=== PATIENT | male | born 1970 | race Caucasian/White ===

== ENCOUNTER 2022-12-03 12:13 | Inpatient (IN) | payer OTHER ==
[~2022-12-03] VITALS: Ht 180.3 cm; Wt 64.7 kg
[~2022-12-03 12:13] MED LIST: ALBU90OI INH; AMOCLA875 PO; CEPH500 PO; CODACE30 PO; CYCL10 PO; DOXY100 PO; HYDACE5 PO; HYDGUAL120 PO; IBUP600; Lopressor 25 mg25 MG PO; MASOPHEN325 MG PO; MEDICAL MARIJUANA; NAPR500 PO; NICO21TP TOP; PANT20 PO; PENVK500 PO; PRED20 PO; PROM25 PO; ROBITUSSIN DM PO; SPACER IH; SULTRIDS PO; TRAM50 PO; VISBIOME 112.51 EACH PO
[2022-12-03 12:49] LABS: BASOPHILS ABSOLUTE AUTO 0.03 K/mm3 (0.00-0.23); BASOPHILS PERCENT AUTO 0 % (0-2); EOSINOPHILS ABSOLUTE AUTO 0.25 K/mm3 (0.00-0.68); EOSINOPHILS PERCENT AUTO 1 % (0-6); Hematocrit 43.8 % (37.0-53.0); Hemoglobin 15.4 g/dL (13.5-17.5); IMMATURE GRAN ABSOLUTE AUTO 0.12 K/mm3 (0.00-0.10); IMMATURE GRAN PERCENT AUTO 1 % (0-1); LYMPHOCYTES ABSOLUTE AUTO 2.61 K/mm3 (0.84-5.20); LYMPHOCYTES PERCENT AUTO 12 % (21-46); MONOCYTES ABSOLUTE AUTO 2.33 K/mm3 (0.16-1.47); MONOCYTES PERCENT AUTO 11 % (4-13); Mean Corpuscular HGB 34.7 pg (26.0-34.0); Mean Corpuscular HGB Conc 35.2 g/dL (31.5-36.5); Mean Corpuscular Volume 99 fL (80-100); Mean Platelet Volume 11.5 fL (9.1-12.4); NEUTROPHILS ABSOLUTE AUTO 16.18 K/mm3 (1.96-9.15); NEUTROPHILS PERCENT AUTO 75 % (41-73); Platelet Count 280 K/mm3 (150-400); RDW Coefficient Variation 16.8 % (11.7-14.2); RDW Standard Deviation 60.9 fL (35.1-46.3); Red Blood Cell Count 4.44 M/mm3 (4.30-5.90); White Blood Cell Count 21.52 K/mm3 (4.00-11.30)
[2022-12-03 13:09] LABS: Albumin, Blood 3.8 g/dL (3.4-5.0); Albumin/Globulin Ratio 1.1 (0.8-1.8); Bilirubin, Total 0.8 mg/dL (0.1-1.0); Bun/Creatinine Ratio 12.2 (12.0-20.0); Calcium, Blood 9.2 mg/dL (8.5-10.1); Creatinine, Blood 0.66 mg/dL (0.60-1.20); Globulin, Blood 3.4 g/dL (2.2-4.0); Potassium, Blood 3.9 mmol/L (3.5-5.5); Total Protein, Blood 7.2 g/dL (6.4-8.2)
[2022-12-03 13:44] LABS: Influenza A, PCR NEGATIVE (NEGATIVE); Influenza B, PCR NEGATIVE (NEGATIVE); Resp Syncytial Virus, PCR NEGATIVE (NEGATIVE); SARS-Cov-2 (COVID-19) PCR, MMC NEGATIVE (NEGATIVE)
[2022-12-03] MEDS ORDERED: ALBU90OI INH (16:28)
--- NOTE | 2022-12-03 18:42 | NUR ---
PT ADMITTED FOR PNEUMONIA Pt is AOx4, independent in room. 2lpm oxygen, wheezing noted t/o lungs, nonproductive moist cough. Temporal temp is 101, Tylenol given and reassessed. Oral temp is 101, per MD extra dose of Tylenol 650mg given. IV Rochepin & Azithromycin administred. Med rec completed, pt states only home med is Albuteral I, he takes PRN. Tele monitor on, sinus tachy @115. Will continue plan of care.
--- NOTE | 2022-12-03 19:43 | NUR ---
Reassessed patient after giving extra tylenol for fever, oral temp is now 102. BP 112/62 (MAP 82), HR Sinus Tach @ 117, O2 90% on 3lpm, RR 22. Patient skin hot to the touch. instructed RN to give Advil 600mg x1 & apply cool packs. Handoff report given to PANCHO PALMER.
[2022-12-04 05:28] LABS: BASOPHILS ABSOLUTE AUTO 0.09 K/mm3 (0.00-0.23); BASOPHILS PERCENT AUTO 0 % (0-2); EOSINOPHILS ABSOLUTE AUTO 0.04 K/mm3 (0.00-0.68); EOSINOPHILS PERCENT AUTO 0 % (0-6); Hematocrit 40.5 % (37.0-53.0); Hemoglobin 14.1 g/dL (13.5-17.5); IMMATURE GRAN ABSOLUTE AUTO 0.45 K/mm3 (0.00-0.10); IMMATURE GRAN PERCENT AUTO 1 % (0-1); LYMPHOCYTES ABSOLUTE AUTO 2.64 K/mm3 (0.84-5.20); LYMPHOCYTES PERCENT AUTO 8 % (21-46); MONOCYTES ABSOLUTE AUTO 4.09 K/mm3 (0.16-1.47); MONOCYTES PERCENT AUTO 12 % (4-13); Mean Corpuscular HGB 34.4 pg (26.0-34.0); Mean Corpuscular HGB Conc 34.8 g/dL (31.5-36.5); Mean Corpuscular Volume 99 fL (80-100); NEUTROPHILS ABSOLUTE AUTO 26.82 K/mm3 (1.96-9.15); NEUTROPHILS PERCENT AUTO 79 % (41-73); Platelet Count 214 K/mm3 (150-400); RDW Coefficient Variation 16.6 % (11.7-14.2); RDW Standard Deviation 60.6 fL (35.1-46.3); White Blood Cell Count 34.13 K/mm3 (4.00-11.30)
[2022-12-04 05:48] LABS: Bun/Creatinine Ratio 18.9 (12.0-20.0); Creatinine, Blood 0.69 mg/dL (0.60-1.20); Potassium, Blood 3.9 mmol/L (3.5-5.5)
--- NOTE | 2022-12-04 08:07 | NUR ---
DONNY STARTED HIS NIGHT WITH A 102 FEVER. AFTER 2 DOSES OF TYLENOL, 600MG OF IBUPROPHEN AND ICE PACKS UNDER HIS ARMS, THE PATIENT'S TEMP DROPPED DOWN TO 98.2 F. NO FURTHER TEMP OVERNIGHT. WBC THIS AM WERE 34.13. PATIENT COMPLAINED THIS MORNING OF RIGHT SIDED PLEURITIC PAIN. TYLENOL WAS GIVEN FOR RELIEF, AND ONCOMING RN INFORMED
--- NOTE | 2022-12-04 15:49 | NUR ---
SHIFT SUMMARY NO ACUTE CHANGES THIS SHIFT. PT AOX4 AND INDEPENDENT TO THE BATHROOM. DAUGHTER AND SON HAVE BEEN AT THE BS THIS SHIFT. PT HAS C/O MONZON AND GENERALIZED PAIN, MEDICATED PER THE EMAR. PT REMAINS ON 3L NC. HIS APPETITE HAS BEEN REAGAN TODAY, EATING WELL. BREATHING TX'S WERE INITIATED AND HE IS TOLERATING THEM WELL. HE SAYS HE IS COUGHING LESS. WILL REPORT TO ONCOMING NURSE.
[2022-12-04 17:24] LABS: Adenovirus Not Detected (NOT DETECT); Bordetella pertussis Not Detected (NOT DETECT); Chlamydophila pneumoniae Not Detected (NOT DETECT); Coronavirus 229E Not Detected (NOT DETECT); Coronavirus HKU1 Not Detected (NOT DETECT); Coronavirus NL63 Not Detected (NOT DETECT); Coronavirus OC43 Not Detected (NOT DETECT); Human Metapneumovirus Not Detected (NOT DETECT); Human Rhinovirus/Enterovirus Detected (NOT DETECT); Influenza A/2009-H1 Not Detected (NOT DETECT); Influenza A/H1 Not Detected (NOT DETECT); Influenza A/H3 Not Detected (NOT DETECT); Influenza B Not Detected (NOT DETECT); Parainfluenza Virus 1 Not Detected (NOT DETECT); Parainfluenza Virus 2 Not Detected (NOT DETECT); Parainfluenza Virus 3 Not Detected (NOT DETECT); Parainfluenza Virus 4 Not Detected (NOT DETECT); Respiratory Syncytial Virus Not Detected (NOT DETECT); SARS-Cov-2 (COVID-19), BioFire Not Detected (NOT DETECT)
[2022-12-04 17:25] LABS: Mycoplasma pneumoniae Not Detected (NOT DETECT)
--- NOTE | 2022-12-05 04:33 | NUR ---
SHIFT SUMMARY PATIENT HAD NO ACUTE CHANGES. AXOX 4 AND INDEPENDENT IN ROOM. PIV REMAINS INTACT. IV ABX INFUSED. TELE MONITOR NSR 98. REPORTED GENERAL PAIN X ONE AND TYLENOL 650 MG GIVEN PER EMAR. ON 3L O2 NC. RT IN FOR BREATHING TX. DENIES CHEST PAIN, SOB, AND N/V. REQUESTED FOOD T/O SHIFT. SLEPT ON/OFF. CALL LIGHT IN REACH. BED IN LOWEST POSITION. WILL CONTINUE TO MONITOR UNTIL DAY SHIFT NURSE ASSUMES CARE.
[2022-12-05 04:50] LABS: BASOPHILS ABSOLUTE AUTO 0.02 K/mm3 (0.00-0.23); BASOPHILS PERCENT AUTO 0 % (0-2); EOSINOPHILS PERCENT AUTO 1 % (0-6); Hematocrit 38.5 % (37.0-53.0); Hemoglobin 13.4 g/dL (13.5-17.5); IMMATURE GRAN ABSOLUTE AUTO 0.07 K/mm3 (0.00-0.10); IMMATURE GRAN PERCENT AUTO 1 % (0-1); LYMPHOCYTES ABSOLUTE AUTO 2.64 K/mm3 (0.84-5.20); LYMPHOCYTES PERCENT AUTO 17 % (21-46); MONOCYTES ABSOLUTE AUTO 1.76 K/mm3 (0.16-1.47); MONOCYTES PERCENT AUTO 12 % (4-13); Mean Corpuscular HGB 34.4 pg (26.0-34.0); Mean Corpuscular HGB Conc 34.8 g/dL (31.5-36.5); Mean Corpuscular Volume 99 fL (80-100); Mean Platelet Volume 12.1 fL (9.1-12.4); NEUTROPHILS PERCENT AUTO 69 % (41-73); Platelet Count 188 K/mm3 (150-400); RDW Coefficient Variation 16.9 % (11.7-14.2); RDW Standard Deviation 60.6 fL (35.1-46.3); White Blood Cell Count 15.19 K/mm3 (4.00-11.30)
[2022-12-05 05:13] LABS: Albumin, Blood 2.8 g/dL (3.4-5.0); Anion Gap 2 mmol/L (6-16); Blood Urea Nitrogen 17 mg/dL (8-24); Bun/Creatinine Ratio 23.8 (12.0-20.0); CO2, Blood 31 mmol/L (21-32); Calcium, Blood 8.9 mg/dL (8.5-10.1); Chloride, Blood 108 mmol/L (98-108); Creatinine, Blood 0.72 mg/dL (0.60-1.20); Glomerular Filtration Rate 110 (60-); Glucose, Blood 119 mg/dL (70-99); Phosphorus, Blood 2.4 mg/dL (2.5-4.9); Potassium, Blood 3.3 mmol/L (3.5-5.5); Sodium, Blood 141 mmol/L (136-145)
--- NOTE | 2022-12-05 17:55 | NUR ---
DAYSHIFT SUMMARY No acute changes to patietn status, vitals stable afebrile. Requiring 2lpm oxygen to maintain sats. IV ABX given, pt reported pruritis when Azithromycin transfusing, Pharmacy changed to PO. Start PO Prednisone today. Lungs dim/wheezing, nonproductive cough. Patient reports overall feeling a lot better today. Will continue plan of care, no discharge plans at this time.
[2022-12-06 00:41] LABS: Vancomycin, Trough 11.6 ug/mL (5.0-10.0)
--- NOTE | 2022-12-06 05:01 | NUR ---
SHIFT SUMMARY 52 YR M ADMITTED ON 12/03/22 FOR PNEUMONIA. FULL CODE. NO ACUTE CHANGES THIS SHIFT. PT'S SON HAS BEEN AT BEDSIDE FOR ENTIRE SHIFT. PT HAS HAD NO C/O PAIN OR DISCOMFORT. HE TOOK HIS O2 OFF STATING THAT HE DIDN'T FEEL HE NEEDED IT AT THIS TIME. PT STATED THAT HE WAS TOLD BY PHYSICIAN THAT HE WOULD BE GOING HOME THIS A.M. AND HE IS ANXIOUS TO LEAVE HE HAS A HOUSING ISSUE TO DEAL WITH.
--- NOTE | 2022-12-06 17:07 | NUR ---
PT IS A/OX4, PLEASANT AND COOPERATIVE. THE PT IS UP IND IN HIS ROOM. THE PTS SON IS AT THE BEDSIDE. THE PT DENIED PAIN, N/V,SOB T/O THE DAY. PT WAS UP AND SHOWERED THIS AFTERNOON. PT APPEARS TO BE BREATHING EASILY ON RA AT THIS TIME, CALL LIGHT IN REACH. WILL CONTINUE TO MONITOR AND ASSESS FOR CHANGES
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
[2022-12-07 08:21] LABS: Hematocrit 40.7 % (37.0-53.0); Hemoglobin 14.2 g/dL (13.5-17.5); Mean Corpuscular HGB 34.4 pg (26.0-34.0); Mean Corpuscular HGB Conc 34.9 g/dL (31.5-36.5); Mean Corpuscular Volume 99 fL (80-100); Mean Platelet Volume 11.2 fL (9.1-12.4); Platelet Count 265 K/mm3 (150-400); RDW Coefficient Variation 16.3 % (11.7-14.2); RDW Standard Deviation 59.7 fL (35.1-46.3); Red Blood Cell Count 4.13 M/mm3 (4.30-5.90); White Blood Cell Count 9.96 K/mm3 (4.00-11.30)
[2022-12-07 08:43] LABS: Bun/Creatinine Ratio 23.6 (12.0-20.0); Calcium, Blood 9.2 mg/dL (8.5-10.1); Creatinine, Blood 0.55 mg/dL (0.60-1.20); Potassium, Blood 3.4 mmol/L (3.5-5.5)
[2022-12-07 08:47] LABS: Vancomycin, Trough 14.9 ug/mL (5.0-10.0)
--- NOTE | 2022-12-07 12:20 | NUR ---
AMA 1215 AMA PT LEFT AMA. STATED HE HAD TO LEAVE BUT PLANS ON COMING BACK TODAY TO CONTINUE TREATMENT. NOTIFIED
[2022-12-08] MEDS ORDERED: NICO21TP TOP (11:46)
[2022-12-08] MEDS ORDERED: LACT PO (11:47)
[2022-12-08] MEDS ORDERED: AMOCLA875 PO (11:48)
[2022-12-08] MEDS ORDERED: FLUTICASONE-SA1 EA11 INH (11:49)
== END 2022-12-07 12:15 | disposition left against medical advice (07) | DRG 871 ==
LOC: ER 12:13 → MEDS 14:44
PROVIDERS: Internal Medicine; Student in an Organized Health Care Education/Training Program; ADMIT Family Medicine
DX: A40.3 Sepsis due to Streptococcus pneumoniae (principal); J15.4 Pneumonia due to other streptococci; J96.01 Acute respiratory failure with hypoxia; R65.20 Severe sepsis without septic shock; J44.1 Chronic obstructive pulmonary disease with (acute) exacerbation; J44.0 Chronic obstructive pulmonary disease with (acute) lower respiratory infection; M54.9 Dorsalgia, unspecified; M54.2 Cervicalgia; G89.29 Other chronic pain; E87.6 Hypokalemia; F17.210 Nicotine dependence, cigarettes, uncomplicated; B34.8 Other viral infections of unspecified site; Z20.822 Contact with and (suspected) exposure to COVID-19; Z79.899 Other long term (current) drug therapy; Z79.2 Long term (current) use of antibiotics; Z79.52 Long term (current) use of systemic steroids; Z71.6 Tobacco abuse counseling
CPT/HCPCS: 0202U; 0241U; 36415; 71046; 80048; 80053; 80069; 80202; 83605; 85025; 85027; 87040; 87070; 87186; 87205; 93306; 94640; 94664; 94760; 96374; 99285-25; A9270; J0456; J0696; J1650; J3370; J7050; J7120; J7512

== ENCOUNTER 2022-12-07 15:21 | Inpatient (IN) | payer OTHER ==
[~2022-12-07] VITALS: Ht 180.3 cm; Wt 62.7 kg
--- NOTE | 2022-12-07 17:41 | NUR ---
NOTES: PATIENT ARRIVED TO ROOM AT AROUND 1715. FROM ER ADMITTED TO MEDICAL FLOOR c DIAGNOSIS OF BACTREMIA. ADMISSION, MEDRIC, SKIN ASSESSMENT c 2 RN BAR TURNER COMPLETED. NOTED BUE PUNCTURED DRY HECTOR SCATTERED T/O, BRUISING TO L LEG, AND AND SCAR TO LLE. PATIENT A&OX4. VERY TALKATIVE. PLEASANT AND COOPERATIVE c CARE. DENIES CP/PRESSURE, N/V AND SOB. VITAL SIGNS REVIEWED. IV TO MIGUEL SALINE LOCKED AT THIS TIME. CALL LIGHT IN REACH.
--- NOTE | 2022-12-08 05:49 | NUR ---
PT IS A&O4, INDEPENDENT WITH ADL'S, VSS, RA, NPO OVERNIGHT, NO COMPLAINTS OF PAIN OR DISCOMFORT THIS SHIFT, CONTINUE POC
[2022-12-08 06:08] LABS: Bun/Creatinine Ratio 29.8 (12.0-20.0); Calcium, Blood 9.9 mg/dL (8.5-10.1); Creatinine, Blood 0.57 mg/dL (0.60-1.20); Potassium, Blood 4.1 mmol/L (3.5-5.5)
--- NOTE | 2022-12-08 08:00 | NUR ---
pt laying in bed with eyes closed, wakes easily, a/ox3, cooperative with care, follows commands well, denies pain, lungs are clear t/o, on r/a, no cough noted, hrr, no edema noted, ppp+2, cap refill <3sec vs stable, afebrile, piv site to lac, site is clear and patent, btx4, abd flat soft nontender, voids without diff, skin c/w/d, massimo camejo, states he's feeling pretty good this am, slept well last night, call light in reach, is npo pending GRICEL.
[2022-12-08] MEDS ORDERED: NICO21TP TOP (11:46)
[2022-12-08] MEDS ORDERED: LACT PO (11:47)
[2022-12-08] MEDS ORDERED: AMOCLA875 PO (11:48)
[2022-12-08] MEDS ORDERED: FLUTICASONE-SA1 EA11 INH (11:49)
--- NOTE | 2022-12-08 12:45 | NUR ---
Pt has been discharged to home, iv removed intact, went over discharge instructions with him, he verbalized understanding, had lunch, left via wheelchair with core shaper in attendence.
== END 2022-12-08 14:52 | disposition home or self-care (01) | DRG 871 ==
LOC: ER 15:21 → MEDS 16:42
PROVIDERS: ADMIT Internal Medicine
PROC: 3E03329 Introduction of Other Anti-infective into Peripheral Vein, Percutaneous Approach (ICD-10-PCS; 2022-12-07)
PROC: B24BZZ4 Ultrasonography of Heart with Aorta, Transesophageal (ICD-10-PCS; principal; 2022-12-08)
DX: A40.3 Sepsis due to Streptococcus pneumoniae (principal); J18.9 Pneumonia, unspecified organism; J96.01 Acute respiratory failure with hypoxia; R65.20 Severe sepsis without septic shock; J44.1 Chronic obstructive pulmonary disease with (acute) exacerbation; J44.0 Chronic obstructive pulmonary disease with (acute) lower respiratory infection; E87.6 Hypokalemia; F17.210 Nicotine dependence, cigarettes, uncomplicated; B34.8 Other viral infections of unspecified site; M54.9 Dorsalgia, unspecified; M54.2 Cervicalgia; G89.29 Other chronic pain; Z71.6 Tobacco abuse counseling; Z79.51 Long term (current) use of inhaled steroids
CPT/HCPCS: 36415; 80048; 93312; 93325; 94640; 94664; 99284; A9270; J0696; J2704; J7030

== ENCOUNTER 2025-08-19 16:30 | Emergency (ER) | payer OTHER ==
[~2025-08-19] VITALS: Ht 180.3 cm; Wt 65.8 kg
[~2025-08-19 16:30] MED LIST changes: +FLUTICASONE-SA1 EA11 INH; +LACT PO
[2025-08-19 17:28] LABS: BASOPHILS ABSOLUTE AUTO 0.04 K/mm3 (0.00-0.23); BASOPHILS PERCENT AUTO 0 % (0-2); EOSINOPHILS ABSOLUTE AUTO 0.18 K/mm3 (0.00-0.68); EOSINOPHILS PERCENT AUTO 1 % (0-6); Hematocrit 48.9 % (37.0-53.0); Hemoglobin 16.6 g/dL (13.5-17.5); IMMATURE GRAN ABSOLUTE AUTO 0.08 K/mm3 (0.00-0.10); IMMATURE GRAN PERCENT AUTO 1 % (0-1); LYMPHOCYTES ABSOLUTE AUTO 2.14 K/mm3 (0.84-5.20); LYMPHOCYTES PERCENT AUTO 12 % (21-46); MONOCYTES ABSOLUTE AUTO 2.14 K/mm3 (0.16-1.47); MONOCYTES PERCENT AUTO 12 % (4-13); Mean Corpuscular HGB Conc 33.9 g/dL (31.5-36.5); Mean Corpuscular Volume 102 fL (80-100); NEUTROPHILS ABSOLUTE AUTO 12.68 K/mm3 (1.96-9.15); NEUTROPHILS PERCENT AUTO 74 % (41-73); NRBC ABSOLUTE 0.00 K/mm3 (0.00-0.02); NRBC Auto 0.0 /100 WBC (0.0-0.2); RDW Coefficient Variation 16.9 % (11.7-14.2); RDW Standard Deviation 63.4 fL (35.1-46.3)
[2025-08-19 17:44] LABS: Alanine Aminotransfer (ALT/SGP 31.0 U/L (12-78); Albumin, Blood 3.9 g/dL (3.4-5.0); Albumin/Globulin Ratio 1.1 (0.8-1.8); Anion Gap 3.0 mmol/L (3-11); Aspartate Aminotrans (AST/SGOT 41.0 U/L (12-37); Bilirubin, Total 1.0 mg/dL (0.1-1.0); Blood Urea Nitrogen 9.0 mg/dL (8-24); CO2, Blood 36.0 mmol/L (21-32); Calcium, Blood 9.4 mg/dL (8.5-10.1); Chloride, Blood 100.0 mmol/L (98-108); Creatinine, Blood 0.81 mg/dL (0.60-1.20); Globulin, Blood 3.5 g/dL (2.2-4.0); Glucose, Blood 198.0 mg/dL (70-99); Potassium, Blood 5.0 mmol/L (3.5-5.5); Sodium, Blood 134.0 mmol/L (136-145); Total Protein, Blood 7.4 g/dL (6.4-8.2)
[2025-08-19] MEDS ORDERED: Ipratropium/Albuterol SulF 2.5-0.5MG/3 ML Amp INH ONE (18:50)
[2025-08-19] MEDS ORDERED: ALBU90OI INH (19:48)
[2025-08-19] MEDS ORDERED: PRED20 PO (19:48)
[2025-08-19 20:07] VITALS: BP 148/102
== END 2025-08-19 20:12 | disposition home or self-care (01) ==
LOC: ER 16:30
PROVIDERS: Student in an Organized Health Care Education/Training Program
DX: J44.1 Chronic obstructive pulmonary disease with (acute) exacerbation (principal); F17.200 Nicotine dependence, unspecified, uncomplicated; Z79.51 Long term (current) use of inhaled steroids; Z79.899 Other long term (current) drug therapy
CPT/HCPCS: 71046; 80053; 83880; 84484; 85025; 93005; 93010; 96374; 99285-25; J2919